=== PATIENT | male | born 1960 | race Caucasian/White ===

== ENCOUNTER 2021-02-04 12:16 | Inpatient (IN) | payer OTHER ==
[~2021-02-04] VITALS: Ht 172.7 cm; Wt 128.8 kg
[~2021-02-04 12:16] MED LIST: ADVAIR; ADVAIR HFA 230M12 GM INH; AMLODIPINE-BEN1 EAC3 PO; APAP650 PO; AVELOX 400 MG400 MG PO; Advair Hfa PO; CEFDINIR300 MG; COLACE100 MG PO; CYCLOBENZAPRINE5 MG PO; DEEP SEA NASAL44 M1 IH; FLEXERIL PO; FOLIC ACID1 MG PO; HUMIRA20 MG/0.4; HYDROCODON-ACE1 EAC5 PO; HYDROCODON-ACE1 EAC7 PO; HYDROCODONE-AP1 EA11 PO; HYDROXYCHLOROQ200 M1 PO; IRON325 PO; JANUVIA100 MG PO; LIPITOR 20 MG T20 M1 PO; LYRICA 75 MG CA75 MG PO; METHOTREXATE; METHOTREXATE 22.5 MG PO; MUCINEX TA600 MG/TA1 PO; NABUMETONE 500500 M1 PO; NEURONTIN 300300 M1 PO; NORCO 10-325 T1 EACH PO; ORENCIA 25250 MG/VIA IV; PERCOCET PO; PREDNISONE; PREDNISONE 10 M10 M1 PO; PREDNISONE 10 M10 MG PO; PREDNISONE 20 M20 M1 PO; PROAIR HFA8.5 GM INH; RHEUMATREX PO; SENNA PO; SIMVASTATIN40 MG PO; SINGULAIR 10 MG10 M1 PO; TRAMADOL 50 MG50 MG PO; XARELTO20 MG PO; XOLAIR150 MG SUBQ; ZOCOR 20 MG TAB20 M1; orencia
[2021-02-04 12:25] VITALS: BP 111/81
[2021-02-04] MEDS ORDERED: SIMVASTATIN80 MG PO (12:31)
[2021-02-04 13:14] LABS: ABSOLUTE LYMPHOCYTES 0.9 thou/uL (0.8-5.3); ABSOLUTE MONOCYTES 0.5 thou/uL (0.0-1.2); ABSOLUTE NEUTROPHILS 4.7 thou/uL (1.6-8.1); BASOPHILS 0.3 %; EOSINOPHILS 0.3 %; HEMATOCRIT 50.4 % (42.0-52.0); HEMOGLOBIN 17.2 gm/dL (14.0-18.0); LYMPHOCYTES 14.4 %; MCH 28.4 pg (26.0-34.0); MCHC 34.1 g/dL (28.0-37.0); MCV 83.3 fL (80.0-100.0); MONOCYTES 7.9 %; MPV 9.1 fl. (7.2-11.1); NUCLEATED RBCS 0 /100WBC; PLATELET COUNT* 238 thou/uL (150-400); POLYS 77.1 %; RBC 6.06 mil/uL (4.50-6.00); RDW-CV 14.8 % (10.5-14.5); WBC 6.1 thou/uL (4.0-11.0)
[2021-02-04 13:23] LABS: CALCIUM 8.5 mg/dL (8.5-10.1); CREATININE 1.3 mg/dL (0.6-1.3); POTASSIUM 3.9 mmol/L (3.5-5.1)
[2021-02-04 13:34] LABS: ALBUMIN 3.1 g/dL (3.4-5.0); TOTAL BILIRUBIN 0.8 mg/dL (<0.1-1.0); TOTAL PROTEIN 7.7 g/dL (6.4-8.2)
--- NOTE | 2021-02-04 14:05 | NUR ---
RESP THERAPY PRESENT TO DO BREATHING TREATMENTS PATIENT IS CURRENTLY IN NEG PRESSURE ROOM
--- NOTE | 2021-02-04 14:48 | EKG ---
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 : 1960 Requested By: Akash Lo Order Number: [id number] MD: Kelvin Farfan Measurements Intervals [place] Rate: 87 P: 54 MS: 139 QRS: -67 QRSD: 105 T: 47 QT: 382 QTc: 460 Interpretive Statements Sinus rhythm Left axis deviation Borderline low voltage, extremity leads Abnormal R-wave progression, late transition Compared to ECG 02/07/2009 00:21:48 Sinus tachycardia no longer present Atrial abnormality no longer present Electronically Signed On 02-04-2021 14:48:18 CDT by Kelvin Farfan [email or web address] <ELECTRONICALLY SIGNED> By: Kelvin Farfan MD, [facility] 02/04/21 1448 1309 1309 Kelvin Farfan MD, [facility] /EPI
[2021-02-04 18:13] VITALS: BP 100/66
[2021-02-04 19:01] VITALS: BP 122/69
[2021-02-04 20:00] VITALS: BP 121/88
[2021-02-05] VITALS (11 sets, daily range): BP systolic 118–166; BP diastolic 65–100
--- NOTE | 2021-02-05 00:17 | NUR ---
ASSUMED CARE OF PT AFTER REPORT AT 1930. PT A&OX4. VSS. PHYSICAL ASSESSMENT COMPLETED AND CHARTED. PT ON O2 AT 2L NC. PT TRACING SR ON TELE. PT UPADLIB TO RESTROOM. UNABLE TO VERIFY COVID RESULT AT [facility]WALK-IN [facility]INIC ALREADY CLOSED (PER DR NIELSEN REQUEST). PT USES CPAP AT -REQUIRING PT TO BE IN A NEGATIVE PRESSURE ROOM-WITH ORDER TO TRANSFER TO ICU-DR MOSQUERA MADE AWARE. REPORT GIVEN TO WILL RN. TRANSFERRED TO ICU VIA WHEELCHAIR WITH NURSING.
[2021-02-05 04:53] LABS: CALCIUM 8.5 mg/dL (8.5-10.1); CREATININE 1.2 mg/dL (0.6-1.3); MAGNESIUM 2.3 mg/dL (1.8-2.4); POTASSIUM 4.5 mmol/L (3.5-5.1)
[2021-02-05 07:35] LABS: METAMYELOCYTES 1 %; PLATELET ESTIMATE ADEQUATE
[2021-02-05 07:46] LABS: ABSOLUTE LYMPHOCYTES 0.2 thou/uL (0.8-5.3); ABSOLUTE NEUTROPHILS 3.8 thou/uL (1.6-8.1); HEMATOCRIT 45.6 % (42.0-52.0); HEMOGLOBIN 15.6 gm/dL (14.0-18.0); MCH 27.8 pg (26.0-34.0); MCHC 33.7 g/dL (28.0-37.0); MCV 82.7 fL (80.0-100.0); MPV 9.1 fl. (7.2-11.1); PLATELET COUNT* 247 thou/uL (150-400); RBC 5.51 mil/uL (4.50-6.00); RDW-CV 14.8 % (10.5-14.5); WBC 4.1 thou/uL (4.0-11.0)
--- NOTE | 2021-02-05 13:31 | NUR ---
cm s/w pt via telephone d/t covid 19 isolation protocol. pt lives home with spouse. pt is FT employeed and independent with adls. pt uses cpap at home. pt is currently on 5l O2 nc; however pt does not have home O2. pt will need oximetry test prior to d/c if O2 needs persist. pt is on iv abx and steroid and remdesivir. pt denies hx with hh or snf. pt is tele status, in neg pressure room in icu.
--- NOTE | 2021-02-05 14:18 | NUR ---
Nutrition: Consult received for Malnutrition. Pt with +COVID [employer], s/p vaccine. He is in COVID precautions currently, awaiting PCR. Spoke with pt's RN. Pt was having difficulty keeping food down [employer], but has been eating fine today. Also has had diarrhea. Wt: 310#. Regular diet ordered. Meds, labs, PMHx noted. Uses CPAP at home. Albumin 3.1. No concern for malnutrition. Consider low nutrition risk at this time.
[2021-02-06] VITALS: BP 132/81
[2021-02-06 04:00] VITALS: BP 131/85
[2021-02-06 04:19] LABS: HEMOGLOBIN 15.3 gm/dL (14.0-18.0); MCH 27.8 pg (26.0-34.0); MCHC 33.2 g/dL (28.0-37.0); MCV 83.9 fL (80.0-100.0); MPV 9.4 fl. (7.2-11.1); NUCLEATED RBCS 0 /100WBC; PLATELET COUNT* 274 thou/uL (150-400); RBC 5.48 mil/uL (4.50-6.00); RDW-CV 14.9 % (10.5-14.5); WBC 11.6 thou/uL (4.0-11.0)
[2021-02-06 05:42] LABS: CALCIUM 8.7 mg/dL (8.5-10.1); CREATININE 1.3 mg/dL (0.6-1.3); POTASSIUM 5.2 mmol/L (3.5-5.1); TOTAL BILIRUBIN 0.2 mg/dL (<0.1-1.0); TOTAL PROTEIN 6.6 g/dL (6.4-8.2)
[2021-02-06 05:45] LABS: ABSOLUTE LYMPHOCYTES 1.3 thou/uL (0.8-5.3); ABSOLUTE MONOCYTES 0.3 thou/uL (0.0-1.2); ANISOCYTOSIS 1+; PLATELET ESTIMATE ADEQUATE; POIKILOCYTOSIS 1+
[2021-02-06 08:10] VITALS: BP 145/76
[2021-02-06 11:35] VITALS: BP 132/76
--- NOTE | 2021-02-06 12:17 | NUR ---
ICU ROUNDS: TPT ON 5L O2. PCR RESULTED IN COVID +. PT INDICATED HE HAD RECEIVED MODERNA VACINATOION.
[2021-02-06 17:03] VITALS: BP 151/84
--- NOTE | 2021-02-06 18:43 | CON ---
[address] [address] CONSULTATION Name: RAFAEL TOBIAS Gt Room: [address] IN M.R.#: [id number] Admission: 02/04/21 Attend Phys: Gordon Huang MD Discharge: Date of : 60 Report #: [id number] THIS REPORT FOR: cc: Wiliam Perez James A. DO Pervez, Adeel MD ~ DOC #: [id number] Kelby Hicks MD DATE OF CONSULTATION: 02/05/2021 REQUESTING PHYSICIAN: Dr. Gordon Huang. INDICATION FOR CONSULTATION: Pneumonia/positive test for COVID-19 at [facility]. HISTORY OF PRESENT ILLNESS: A 60-year-old gentleman, past medical history includes a history of morbid obesity, body mass index 47, on a CPAP at home long-term, also has a history of a DVT in the past and takes Xarelto long-term. The patient's is also sick with COVID-19. He was also having respiratory complaints, primarily increase in shortness of breath. He says that he also had significant chills, but did not check his temperature. He did have a cough, not much sputum. No chest pain. No nasal discharge, no increase in swelling of lower extremities or calf pain. With these complaints, he in fact was evaluated in the Medical Clinic at [facility]. COVID-19 test was performed and it is positive. I do have records from [facility] available and these are in the patient's chart. The patient subsequently due to persistent complaints came to the Emergency Room in our hospital. At this time, he is requiring around 5 liters of oxygen to maintain O2 saturation in the low 90s. He still has the shortness of breath. He answers to the negative for 12 questions for review of systems, except as mentioned above. PAST MEDICAL HISTORY: Bronchial asthma. He is on high-dose Advair, also on Xolair at home. Rheumatological condition. I do not have details available for which he is on hydroxychloroquine as well as methotrexate long-term. It is possible that this is rheumatoid arthritis. DVT, he is on anticoagulation long-term, diabetes. Obstructive sleep apnea on a CPAP long-term. SOCIAL HISTORY: No known history of smoking, ethanol abuse, or drug abuse. CURRENT MEDICATIONS: List in [facility] reviewed. HOME MEDICATIONS: See discussion above. Also in [facility] reviewed. ALLERGIES: REPORTED TO BE ALLERGIC TO PENICILLIN, GABAPENTIN, CYCLOSPORINE, BENADRYL AND ASPIRIN. ALSO IS REPORTED TO HAVE HAD [place]ER[place] [address] CONSULTATION Name: MICHELINERAFAEL Gt Room: [address] IN [facility].#: [id number] Admission: 02/04/21 Attend Phys: Gordon Huang MD Discharge: Date of : 60 Report #: [id number] OXYCODONE. The patient tolerates cephalosporins without problems. FAMILY HISTORY: also has COVID-19. VACCINATION: The patient is reported to have had a vaccination for COVID-19. PHYSICAL EXAMINATION: GENERAL: He is alert, awake and oriented, does not appear to be in any distress at this time. VITAL SIGNS: Pulse of 85 and blood pressure of 125/74. He was saturating 91% on 5 liters oxygen by nasal cannula and at the time of my evaluation, he was afebrile with a temperature of 36.6. Body mass index 47. HEENT: Normocephalic, atraumatic. Pupils equal, reactive, narrow airway. Mucous membranes moist. NECK: Does not show raised JVP, asymmetry, mass or lymph nodes. CHEST: Symmetrical expansion on inspection and palpation. On auscultation, breath sounds are equal, decreased. I do not hear any added sounds. HEART: Regular. There is no murmur. ABDOMEN: Soft and nontender. LOWER EXTREMITIES: Show minimal edema only. No calf tenderness. SKIN: Dry and intact. NEUROLOGIC: Moves all extremities bilaterally equally and spontaneously with no focal deficit identified. LABORATORY DATA: The patient's chest x-ray is reviewed and compared with the chest x-ray done yesterday, there are interstitial infiltrates consistent with COVID-19 noted. Chest x-ray, he has had a previous chest x-ray in 2009 also. I only have the report available, when comparing with the report, finding appears to be new, the patient's lab work is in [employer]. This is reviewed. ASSESSMENT AND PLAN: 1. Acute hypoxemic respiratory failure. The patient does have interstitial infiltrates on his chest x-ray, findings are consistent with COVID-19; however, he did test negative for our COVID test. He is reported to have had a positive test at [facility]. At this time, we are treating it as COVID-19. We will continue to titrate oxygen, recommend avoiding lying supine, out of bed to chair as tolerated. He declines to lay prone, so therefore, I would recommend being on sides, if he is not sitting. We will try to get him an incentive spirometer. Also, we will try to get him a recliner, so that he could be out of bed. He is currently in the ICU as he needs a CPAP at night and we do not have a negative pressure rooms available elsewhere. Otherwise, he could be on the floor, but needs to be in a negative pressure room. 2. COVID-19. We are treating it as COVID-19 for now. We will try to clarify further regarding what test was performed at [facility] and how long ago he had the [address] [place] [address] CONSULTATION Name: RAFAEL TOBIAS Gt Room: [address] IN [facility].#: [id number] Admission: 02/04/21 Attend Phys: Gordon Huang MD Discharge: Date of : 60 Report #: [id number] vaccination for COVID. He has had COVID-19 vaccination in the past, so this by itself will give you a positive antibody test. He is currently on Decadron. He is also on remdesivir. I ordered a type and screen. I discussed with him about plasma. If he fails to improve, then I will consider giving him plasma as well. Also if his oxygen needs increase, then I will consider giving him Actemra while understanding that this will be higher than average risk, considering that he has previously been on hydroxychloroquine and methotrexate. 3. Bronchial asthma. I would like to run his Decadron dose higher at 6 b.i.d. for now, I will keep him on Brovana and budesonide scheduled, will give him p.r.n. albuterol. 4. History of DVT. Note that he is on long-term anticoagulation. 5. History of rheumatological condition/probable rheumatoid arthritis. Note that he is on hydroxychloroquine long-term at home. For now, I discontinued hydroxychloroquine as it will interact with remdesivir. He will need hydroxychloroquine restarted whenever he comes off remdesivir. 6. Fluid and electrolytes. We will run him on the dry side. I ordered 40 of Lasix. 7. Deep venous thrombosis prophylaxis, already on Xarelto. 8. Obstructive sleep apnea, it is imperative that he does use a CPAP whenever he is sleeping. 9. Gastrointestinal prophylaxis, Protonix. 10. C. difficile prophylaxis. We will give him Lactinex. Thanks for this consultation. MD WICHO Leyva/ALMASU <ELECTRONICALLY SIGNED> By: Kelby Hicks MD 02/06/21 1843 1057 [id number] Hicks MD /nt
[2021-02-06 20:27] VITALS: BP 143/71
[2021-02-07 07:51] VITALS: BP 137/79
[2021-02-07 07:55] LABS: ABSOLUTE LYMPHOCYTES 0.7 thou/uL (0.8-5.3); ABSOLUTE MONOCYTES 0.4 thou/uL (0.0-1.2); ABSOLUTE NEUTROPHILS 13.5 thou/uL (1.6-8.1); BASOPHILS 0.3 %; HEMATOCRIT 45.4 % (42.0-52.0); HEMOGLOBIN 15.1 gm/dL (14.0-18.0); LYMPHOCYTES 4.5 %; MCH 27.9 pg (26.0-34.0); MCHC 33.2 g/dL (28.0-37.0); MCV 84.2 fL (80.0-100.0); MONOCYTES 3.1 %; MPV 9.2 fl. (7.2-11.1); NUCLEATED RBCS 0 /100WBC; PLATELET COUNT* 320 thou/uL (150-400); POLYS 92.1 %; RBC 5.39 mil/uL (4.50-6.00); RDW-CV 14.4 % (10.5-14.5); WBC 14.7 thou/uL (4.0-11.0)
[2021-02-07 09:02] LABS: CALCIUM 8.7 mg/dL (8.5-10.1); CREATININE 1.3 mg/dL (0.6-1.3); MAGNESIUM 2.2 mg/dL (1.8-2.4); POTASSIUM 4.5 mmol/L (3.5-5.1); TOTAL BILIRUBIN 0.2 mg/dL (<0.1-1.0)
[2021-02-07 09:03] LABS: TOTAL PROTEIN 6.3 g/dL (6.4-8.2)
--- NOTE | 2021-02-07 09:54 | NUR ---
ICU Rounds: Patient is currently on RA and has 2 more doses left of remdesevir. Patient currenly using IS and wears his home cpap machine at . Patient is up ad alicia in room and recieving breathing tx as needed. Patient in COVID isolation at this time. No anticipated dc needs at this time. CM to continue to follow for dc planning.
[2021-02-07 17:22] VITALS: BP 170/70
[2021-02-07 21:05] VITALS: BP 138/90
[2021-02-08 00:21] VITALS: BP 157/72
[2021-02-08 04:15] VITALS: BP 159/76
[2021-02-08 04:19] LABS: ABSOLUTE LYMPHOCYTES 0.9 thou/uL (0.8-5.3); ABSOLUTE MONOCYTES 0.6 thou/uL (0.0-1.2); ABSOLUTE NEUTROPHILS 12.3 thou/uL (1.6-8.1); BASOPHILS 0.1 %; HEMATOCRIT 47.5 % (42.0-52.0); HEMOGLOBIN 15.9 gm/dL (14.0-18.0); LYMPHOCYTES 6.4 %; MCH 27.9 pg (26.0-34.0); MCHC 33.4 g/dL (28.0-37.0); MCV 83.6 fL (80.0-100.0); MONOCYTES 4.1 %; NUCLEATED RBCS 0 /100WBC; PLATELET COUNT* 357 thou/uL (150-400); POLYS 89.4 %; RBC 5.68 mil/uL (4.50-6.00); RDW-CV 14.7 % (10.5-14.5); WBC 13.8 thou/uL (4.0-11.0)
--- NOTE | 2021-02-08 04:25 | NUR ---
ASSUMED PATIENT CARE AT 1900. ASSESSMENTS COMPLETED CHARTED. CARDIAC MONITORING IN PLACE. NO BM DURING SHIFT. HOURLY ROUNDING IN PLACE FOR PATIENT SAFETY. FALL PRECAUTIONS IN PLACE FOR PATIENT SAFETY. BED LOCKED AND IN LOWEST POSITION. CLWR.
[2021-02-08 04:49] LABS: CALCIUM 8.9 mg/dL (8.5-10.1); CREATININE 1.3 mg/dL (0.6-1.3); MAGNESIUM 2.2 mg/dL (1.8-2.4); POTASSIUM 4.8 mmol/L (3.5-5.1); TOTAL BILIRUBIN 0.5 mg/dL (<0.1-1.0)
--- NOTE | 2021-02-08 10:20 | NUR ---
ICU Rounds: Patient remains on RA. Redesevir complete. Patient does not have any discharge planning needs at this time. Okay to return home when medically cleared. CM to continue to follow if needs develop.
[2021-02-08] MEDS ORDERED: DOXYCYCLINE 10100 MG PO (12:03)
[2021-02-08] MEDS ORDERED: ALBUTEROL2.5 MG/31 INH (12:03)
[2021-02-08] MEDS ORDERED: DEXAMETHASONE1 MG PO (12:03)
[2021-02-08] MEDS ORDERED: PROTONIX40 M2 PO (12:03)
[2021-02-08 12:44] VITALS: BP 143/82
[2021-02-08 15:49] VITALS: BP 161/76
[2021-02-08 18:42] VITALS: BP 161/76
== END 2021-02-08 19:15 | disposition home or self-care (01) | DRG 177 ==
LOC: M.ERS 12:16 → M.ICU 13:50 → M.TBA-ER 13:50 → M.2W 18:27 → M.ICU 23:53
PROVIDERS: Family Medicine; Internal Medicine Critical Care Medicine; ADMIT Internal Medicine; ATTEND Internal Medicine
PROC: 5A09357 Assistance with Respiratory Ventilation, Less than 24 Consecutive Hours, Continuous Positive Airway Pressure (ICD-10-PCS; principal; 2021-02-04)
PROC: XW033E5 Introduction of Remdesivir Anti-infective into Peripheral Vein, Percutaneous Approach, New Technology Group 5 (ICD-10-PCS; principal; 2021-02-04)
PROC: XW13325 Transfusion of Convalescent Plasma (Nonautologous) into Peripheral Vein, Percutaneous Approach, New Technology Group 5 (ICD-10-PCS; 2021-02-05)
DX: U07.1 COVID-19 (principal); J96.01 Acute respiratory failure with hypoxia; J12.82 Pneumonia due to coronavirus disease 2019; Z68.41 Body mass index [BMI] 40.0-44.9, adult; E66.2 Morbid (severe) obesity with alveolar hypoventilation; J45.909 Unspecified asthma, uncomplicated; E11.9 Type 2 diabetes mellitus without complications; M06.9 Rheumatoid arthritis, unspecified; Z88.6 Allergy status to analgesic agent; Z88.0 Allergy status to penicillin; Z88.8 Allergy status to other drugs, medicaments and biological substances; Z86.718 Personal history of other venous thrombosis and embolism; Z87.891 Personal history of nicotine dependence